=== PATIENT | male | born 1960 | race Caucasian/White ===

== ENCOUNTER 2018-02-14 14:41 | Outpatient (CLI) | payer BC | END 2018-02-14 14:42 | disposition home or self-care (01) | LOC: BICRAD 14:41 | PROVIDERS: ATTEND Internal Medicine Rheumatology | DX: M81.0 Age-related osteoporosis without current pathological fracture (principal); M47.894 Other spondylosis, thoracic region; M41.9 Scoliosis, unspecified | CPT/HCPCS: 72070 ==

== ENCOUNTER 2018-05-20 16:33 | Outpatient (CLI) | payer BC ==
--- NOTE | 2018-05-20 17:49 | RAD ---
LEFT ANKLE TWO VIEWS: 05/20/18 HISTORY: Left ankle injury. FINDINGS: Ankle mortise is intact. Talar dome maintained. No acute fracture, dislocation, or aggressive osseous erosions. IMPRESSION: No acute osseous abnormalities are demonstrated. POS: MARII
== END 2018-05-20 16:34 | disposition home or self-care (01) ==
LOC: BICRAD 16:33
PROVIDERS: ATTEND Internal Medicine Rheumatology
DX: M25.572 Pain in left ankle and joints of left foot (principal); M79.672 Pain in left foot

== ENCOUNTER 2021-01-10 09:27 | Emergency (ER) | payer BC ==
[2021-01-10 10:15] LABS: #Basophils 0.1 thou/uL (0.0-0.2); #Eosinphils 0.1 thou/uL (0.0-0.7); #Lymphocytes 1.6 thou/uL (1.20-3.40); #Monocytes 1.3 thou/uL (0.11-0.59); #Neutrophils 6.8 thou/uL (1.40-6.50); %Eosinophils 0.6 % (0.0-10.0); %Lymphocytes 15.8 % (21.0-51.0); %Monocytes 13.5 % (0.0-10.0); %Neutrophils 69.1 % (42.0-75.0); Hemoglobin 17.6 g/dL (14.0-18.0); Mean Corpuscular HGB CONC 31.8 g/dL (32.0-36.0); Mean Corpuscular Hemoglobin 27.8 pg (27.0-31.0); Mean Corpuscular Volume 87.4 fL (78.0-98.0); Mean Platelet Volume 6.9 fL (7.4-10.4); Platelet Count 356 thou/uL (130-400); RBC Distribution Width 12.8 % (11.5-14.5); Red Blood Cell (RBC) Count 6.32 mill/uL (4.70-6.10); White Blood Cell (WBC) Count 9.9 thou/uL (4.8-10.8)
[2021-01-10 10:36] LABS: PTT 31.3 sec (22.9-36.1); Prothrombin Time 13.5 sec (12.0-14.7)
[2021-01-10 10:38] LABS: ALT (SGPT) 33 U/L (8-55); AST (SGOT) 40 U/L (5-34); Albumin 4.1 g/dL (3.5-5.0); Alkaline Phosphatase 64 U/L (40-110); Anion Gap 13 mmol/L (10-20); BUN (Urea Nitrogen) 16 mg/dL (8.4-25.7); Bilirubin, Total 3.8 mg/dL (0.2-1.2); Calc. Creatinine Clearance 0 mL/min (70-130); Calcium 9.5 mg/dL (7.8-10.44); Carbon Dioxide 27 mmol/L (22-29); Chloride 99 mmol/L (98-107); Globulin 3.5 g/dL (2.4-3.5); Glucose 100 mg/dL (70-105); Potassium 3.8 mmol/L (3.5-5.1); Protein, Total 7.6 g/dL (6.0-8.3); Sodium 135 mmol/L (136-145)
== END 2021-01-10 14:27 | disposition home or self-care (01) ==
LOC: ERS 09:27
DX: K92.1 Melena (principal); Z79.899 Other long term (current) drug therapy; Z79.82 Long term (current) use of aspirin
CPT/HCPCS: 80053; 82274; 85025; 85610; 85730; 99283